=== PATIENT | female | born 2000 | race Caucasian/White ===

== ENCOUNTER 2022-08-16 10:09 | Emergency (ER) | payer SELFPAY ==
[2022-08-16 10:24] VITALS: RESP 18; BMI 25.7
[2022-08-16 14:47] VITALS: BP 147/84; PULSE 88; TEMP 98.4
== END 2022-08-16 19:01 | disposition home or self-care (01) ==
LOC: FER 10:09
DX: F10.129 Alcohol abuse with intoxication, unspecified (principal)
CPT/HCPCS: 99281-25